=== PATIENT | female | born 1995 | race Caucasian/White ===

== ENCOUNTER 2021-01-08 07:25 | Day surgery (SDC) | payer OTHER ==
[~2021-01-08] VITALS: Ht 165.1 cm; Wt 104.3 kg
[~2021-01-08 07:25] MED LIST: ALLERGY4 MG PO; PNV PRENATAL P1 EACH PO; PRILOSEC OTC20 MG PO; ROBAXIN-750750 MG PO; ZOFRAN ODT4 MG SL
--- NOTE | 2021-01-08 09:54 | NUR ---
01/08/21 0954 Leann Miles 1930-PATIENT ARRIVED TO PACU ON 10L MASK NONAROUSABLE RR EVEN. ORAL AIRWAY IN PLACE RN HOLDING JAW TO MAINTAIN OPEN. IVF INFUSING. STERI STRIPS TO ABDOMEN CDI. SR.
[2021-01-08] MEDS ORDERED: IBUPROFEN600 MG PO (10:06)
[2021-01-08] MEDS ORDERED: ACETAMINOPHEN500 MG PO (10:06)
[2021-01-08] MEDS ORDERED: OXYCODON-ACETA1 EAC2 PO (10:07)
--- NOTE | 2021-01-08 10:40 | NUR ---
PT ARRIVES TO DS RM 2 FROM PACU DROWSY. PT EASILY AROUSES WITH VERBAL STIMULATION AND IS ABLE TO FOLLOW COMMANDS. PT STATES PAIN 6/10 IN UMBILICUS SITE AND DENIES ANY NAUSEA. PT TOLERATES SIPS OF WATER. PT HAS PILLOW TO BRACE ABD WITH, USES WITH COUGHS. CALL LIGHT WITHIN REACH.
--- NOTE | 2021-01-08 11:37 | NUR ---
1105: PT PROVIDED CRACKERS, SITTING UPRIGHT IN BED TALKING ON CELL PHONE. CALL LIGHT WITHIN REACH. 1125: PT STATES PAIN IN RUQ AND RATES 6/10; SEE EMAR FOR PAIN ADMINISTRATION. PT STATES URGE TO PEE, UP TO BATHROOM WITH RN ASSIST. PT HAS STEADY GAIT, DENIES ANY DIZZINESS OR NAUSEA WITH MOVEMENT. PT ABLE TO VOID APPROX 350 MLS YELLOW URINE. PT BACK TO DS RM 2, WANTS TO WATCH TV.
--- NOTE | 2021-01-08 12:48 | NUR ---
LE 1235: D/C INSTRUCTIONS PROVIDED AND DISCUSSED ORDERED. PT VOICES UNDERSTANDING AND DENIES QUESTIONS AT THIS TIME. ENCD TO CONTACT OFFICE IF ANY ARISE. PT TO PREPARE FOR D/C
--- NOTE | 2021-01-08 13:44 | NUR ---
[id number]: PT DRESSED AND SISTER IN LAW WAITING IN HOSPITAL PARKING LOT. PT TRANSFERS SELF FROM STRETCHER TO WC WITH NO PROBLEMS. PT MADE AWARE OF PAPER SCRIPT IN DC FOLDER AND OTHER MEDICATIONS FAXED TO PREFERRED PHARMACY. PT DC FROM DS RM 2 VIA TO SISTER IN LAW PERSONAL VEHICLE TO HOME.
--- NOTE | 2021-01-08 15:23 | OR ---
[facility] [address] [place], [place] [address] Signed DATE OF OPERATION: 01/08/2021 SURGEON: Fanta Piña MD PREOPERATIVE DIAGNOSES: 1. Chronic calculous cholecystitis. 2. Obesity. POSTOPERATIVE DIAGNOSES: 1. Chronic calculous cholecystitis. 2. Obesity. 3. Obstruction of gallbladder related to impacted stone in the infundibulum with white bile. PROCEDURES: 1. Laparoscopic cholecystectomy with intraoperative cholangiogram. 2. Surgeon-directed fluoroscopy. ANESTHESIA: General endotracheal; Fanta Tellez CRNA and local 20 mL of 0.25% Marcaine with epinephrine. INDICATION: This obese white woman is a patient of DANIEL Ahn and lives in [place], [place]. She has had recurrent bouts of nausea and persistent intolerance of oral intake. She has symptoms typical of biliary disease including right subcostal pain radiating into the back. A gallbladder ultrasound was performed, which showed multiple gallstones. Ultrasound was on September 07, 2020, She is admitted at this time to undergo cholecystectomy. She understands the risks of bleeding, infection, bile duct injury need for open procedure and other unforeseen complications. Understanding this, she wished to proceed. FINDINGS: Indeed the gallbladder was chronically inflamed. As it turns out, there were multiple 5 mm gallstones within the gallbladder. There was a single stone that was wedged in the infundibulum allowing for no egress of bile from the gallbladder and notably "white bile" including a true thick white paste like bile within the gallbladder itself. The cholangiogram was normal. There were no other findings of concern. DESCRIPTION OF PROCEDURE: Electronically Signed By: FANTA PIÑA MD 01/08/21 1523 PATIENT NAME: JOSE FORD OPERATIVE REPORT DATE OF : [birth year] REPORT #: [id number] PHYSICIAN: FANTA PIÑA MD PCP: TIFFANIE ESCOTO PAC REPORT IS CONFIDENTIAL AND NOT TO BE RELEASED WITHOUT AUTHORIZATION [facility] [address] [place], [place] [address] Signed The patient was brought to the operating room, given a general endotracheal anesthetic. Preoperative antibiotic Ancef was given. Sequential compression device stockings were used and heparin subcutaneously administered. The abdomen was prepared with a chlorhexidine solution and draped sterilely. An infraumbilical incision was made and using an open William cannula technique, pneumoperitoneum was achieved to a level of 14 mmHg of carbon dioxide gas. Intraabdominal inspection showed no sign of ascites or carcinomatosis. The gallbladder was obscured from view due to obesity. Three additional trocars were placed in usual configuration in the subxiphoid, right midclavicular, and right anterior axillary line. The gallbladder was ultimately identified, grasped and elevated cephalad. Adhesions of omentum to the undersurface of the gallbladder were taken down with blunt and electrocautery dissection. This allowed for better elevation of the gallbladder. The infundibulum of the gallbladder was grasped and retracted laterally and using blunt and electrocautery dissection, the triangle of Calot was dissected free. A small pericholecystic lymph node was enlarged nearby. Ultimately, cystic duct was well identified. It appeared to be a stone wedged in the proximal portion of the cystic duct. The stone was milked back into the gallbladder itself and ultimately, a clip applied across the gallbladder and cystic duct junction. A transverse choledochotomy was made in the cystic duct and retrograde milking of the cystic duct did show clear bile. An Negrete type cholangiocatheter was placed in the cystic duct allowing for intraoperative cholangiography ultimately though, it was a challenge to get the catheter well situated. Once performed, however, there was free flow of contrast in biliary tree, the bile duct appeared slightly dilated, but there was flow without impediment into the duodenum. The catheter was removed and the cystic duct was triply clipped and divided and the gallbladder dissected free in a retrograde fashion using electrocautery. The clip was used to secure the gallbladder cystic duct junction had slipped and a few stones spilled into the subhepatic space. The gallbladder was placed in an endobag and extracted through the infraumbilical port site without problem, opened on the back table and found to have white thick bile in small amounts and completely pale mucosa and multiple yellow, round 5 mm gallstones. Gallstones that had spilled were carefully gathered and completely removed from the subhepatic space. Irrigation was undertaken showing no sign of bile leak, bleeding, or other retained stones. The trocars were then removed under direct visualization showing no sign of bleeding. The infraumbilical fascial incision was reapproximated with interrupted 0 Vicryl suture as well as a running 0 PDS suture. Irrigation was undertaken. The skin closed with interrupted 3-0 Vicryl. Steri-Strips were applied. 20 mL of 0.25% Marcaine with epinephrine had been injected locally into the trocar sites. The patient was ultimately extubated and transferred to the recovery room in good condition having suffered no complications. Sponge, needle, and instrument counts were reported as correct x3. Electronically Signed By: FANTA PIÑA MD 01/08/21 1523 PATIENT NAME: JOSE FORD OPERATIVE REPORT DATE OF : [birth year] REPORT #: [id number] PHYSICIAN: FANTA PIÑA MD PCP: TIFFANIE ESCOTO PAC REPORT IS CONFIDENTIAL AND NOT TO BE RELEASED WITHOUT AUTHORIZATION [address] [place] [address] Signed MD QUIRINO Clarke/ADRIENNE /[id number] cc: Tiffanie Escoto PA-C Copies: TIFFANIE ESCOTO ~ Electronically Signed By: FANTA PIÑA MD 01/08/21 1523 PATIENT NAME: JOSE FORD OPERATIVE REPORT DATE OF : [birth year] REPORT #: [id number] PHYSICIAN: FANTA PIÑA MD PCP: TIFFANIE ESCOTO PAC REPORT IS CONFIDENTIAL AND NOT TO BE RELEASED WITHOUT AUTHORIZATION
--- NOTE | 2021-01-09 11:23 | PATH ---
[facility] [address] [place], [place] [address] Signed SPECIMEN(S): A GALLBLADDER AND GALLSTONES SPECIMEN SOURCE: A. GALLBLADDER AND GALLSTONES CLINICAL HISTORY: Chronic cholecystitis with calculus. FINAL PATHOLOGIC DIAGNOSIS: Gallbladder, cholecystectomy: - Chronic cholecystitis. - Cholelithiasis. NAL:cml:C2NR MICROSCOPIC EXAMINATION: Histologic sections of all submitted blocks are examined by light microscopy. These findings, together with the gross examination, support the pathologic diagnosis. GROSS DESCRIPTION: The specimen, labeled " jodi Zamorano," is received in formalin and consists of Specimen: Previously opened pink gallbladder. Dimensions: 6.5 x 3.0 x 0.7 cm. Serosa: Smooth and marked by areas of white chalky material. Cystic Duct: The cystic duct is received cross clamped, is inked blue and is patent. Calculi: Present within the specimen container are multiple green multifaceted calculi up to 0.6 cm. Mucosa: Paguate and slightly roughened. Wall thickness: 0.3 cm. Lymph node: No pericystic lymph nodes are grossly identified. Additional: None. Rn Pain Management sections are submitted in cassette (A1). AK (under the direct supervision of a pathologist) The Gross Description was prepared using a voice recognition system. The report was reviewed for accuracy; however, sound-alike word errors, addition and/or deletions may occur. If there is any question about this report, please contact Client Services. PERFORMING LABORATORY: PATIENT NAME: JOSE ZAMORANO PATHOLOGY DATE OF : [birth year] REPORT #: [id number] PHYSICIAN: ANN CORDERO PCP: TIFFANIE GARY PAC REPORT IS CONFIDENTIAL AND NOT TO BE RELEASED WITHOUT AUTHORIZATION [facility] [address] [id number] Signed The technical component was [place] [address] (Front Office Developer: Maisha Dwyer MD; CLIA# [id number]). [facility] [address] [address] (CLIA# [id number]). Diagnostician: Nani Durán MD Pathologist Electronically Signed 01/09/2021 Copies: ~ PATIENT NAME: JOSE ZAMORANO PATHOLOGY DATE OF : [birth year] REPORT #: [id number] PHYSICIAN: ANN CORDERO PCP: TIFFANIE GARY PAC REPORT IS CONFIDENTIAL AND NOT TO BE RELEASED WITHOUT AUTHORIZATION
== END 2021-01-08 12:50 | disposition home or self-care (01) ==
LOC: DS 07:25
PROVIDERS: ATTEND Surgery
PROC: BF12YZZ Fluoroscopy of Gallbladder using Other Contrast (ICD-10-PCS; 2021-01-08)
PROC: 0FT44ZZ Resection of Gallbladder, Percutaneous Endoscopic Approach (ICD-10-PCS; principal; 2021-01-08 08:15)
DX: K80.11 Calculus of gallbladder with chronic cholecystitis with obstruction (principal); E66.01 Morbid (severe) obesity due to excess calories; K21.9 Gastro-esophageal reflux disease without esophagitis; J45.909 Unspecified asthma, uncomplicated; Z68.38 Body mass index [BMI] 38.0-38.9, adult; Z88.5 Allergy status to narcotic agent
CPT/HCPCS: 74300; J0330; J0690; J1100; J1644; J1885; J2250; J2405; J2704; J2765; J3010; J7121; Q9967